=== PATIENT | female | born 2000 | race Caucasian/White ===

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

== ENCOUNTER 2020-07-24 19:01 | Emergency (ER) | payer BC ==
[2020-07-24] MEDS ORDERED: Sodium Chloride 0.9% 1,000 ML IV ONE (19:28)
[2020-07-24] MEDS ORDERED: Metoclopramide 10 MG/2 ML SDV IVPUSH ONE (19:28)
[2020-07-24] MEDS ORDERED: Sodium Chloride 0.9% 10 ML Syringe FLUSH PRN (19:28)
[2020-07-24] MEDS ORDERED: Ketorolac 30 MG/ML SDV IVPUSH ONE (19:28)
[2020-07-24] MEDS ORDERED: diphenhydrAMINE 50 MG/ML SDV IVPUSH ONE (19:28)
--- NOTE | 2020-07-24 19:35 | EDM.PDOC ---
ED HPI GENERAL MEDICAL PROBLEM - General Chief Complaint: Headache Stated Complaint: headache vomiting Time Seen by Provider: 07/24/20 19:16 Source of Information: Reports: Patient, RN Notes Reviewed History Limitations: Reports: No Limitations - History of Present Illness INITIAL COMMENTS - FREE TEXT/NARRATIVE: The patient is a 19-year-old female who presents to the ED for evaluation of her headache. For the last day, she has had a pretty severe headache. She does note that this is mostly on the left side of her head. She notes is been worse for the last couple hours. She is not taking any medications [id number] for this. She was evaluated in the walk-in clinic last week, and given Phenergan, Zofran, and cyclobenzaprine for further headache management, but she has not taken any of these today. She states she was taking Advil or Aleve for her headache, but notes that not even these seem to be helping much. She has not taken any of these today. She states that she just took a nap to see if it would go away. Other than the headache, she is not having any sick-like symptoms, fever/chills, cough/shortness of breath, states that she was nauseous on the way over here but did not vomit or have any diarrhea. Patient notes that she was seen many years ago for her headaches, and had an MRI, but cannot recall if anything was wrong with that. She also notes a history of PCOS, her last menstrual period was last week, she is on control, so does not think she be at today's visit. 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 Musculoskeletal History: Reports: Fracture Other Musculoskeletal History: elbow Neurological History: Reports: Seizure, Other (See Below) Other Neuro History: seizures as a baby; headaches Oncologic (Cancer) History: Reports: Other (See Below) Other Oncologic History: skin cancer - Past Surgical History HEENT Surgical History: Reports: Oral Surgery Dermatological Surgical History: Reports: Other (See Below) (for skin cancer) Social & Family History - Tobacco Use Smoking Status *Q: Never Smoker Second Hand Smoke Exposure: No - Caffeine Use Caffeine Use: Reports: Coffee, Soda - Recreational Drug Use Recreational Drug Use: No - Living Situation & Occupation Living situation: Reports: Single, with Family Occupation: Student ([employer]) ED ROS GENERAL - Review of Systems Review Of Systems: Comprehensive ROS is negative, except as noted in HPI. - Physical Exam Exam: See Below Exam Limited By: No Limitations General Appearance: Alert, WD/WN, No Apparent Distress Eye Exam: Bilateral Eye: EOMI, Normal Inspection, PERRL Head Exam: Atraumatic, Normocephalic Neck: Normal Inspection, Supple, Non-Tender, Full Range of Motion Respiratory/Chest: No Respiratory Distress, Lungs Clear, Normal Breath Sounds, No Accessory Muscle Use, Chest Non-Tender Cardiovascular: Normal Peripheral Pulses, Regular Rate, Rhythm, No Murmur GI/Abdominal: Normal Bowel Sounds, Soft, Non-Tender, No Distention, No Mass Neuro Exam (Abbreviated): Alert, Oriented, Normal Cognition, No Motor/Sensory Deficits Extremities: Normal Inspection, Normal Capillary Refill Psychiatric: Normal Affect, Normal Mood Skin Exam: Warm, Dry, Intact, Normal Color, No Rash Course - Vital Signs Last Recorded V/S: Last Vital Signs Temp 97.3 F 07/24/20 19:16 Pulse 87 07/24/20 19:16 Resp 18 07/24/20 19:16 BP 137/96 H 07/24/20 19:16 Pulse Ox 98 07/24/20 19:16 - Orders/Labs/Meds Orders: Active Orders 24 hr Category Date Time Status Peripheral IV Care [RC] . DIRECTED Care 07/24/20 19:29 Ordered Sodium Chloride 0.9% [Normal Saline] 1,000 ml Med 07/24/20 19:28 Active IV ASDIRECTED Sodium Chloride 0.9% [Saline Flush] Med 07/24/20 19:28 Active 10 ml FLUSH ASDIRECTED PRN Peripheral IV Insertion Adult [OM.PC] Routine Oth 07/24/20 19:29 Ordered Medication Orders Sodium Chloride (Normal Saline) 1,000 mls @ 999 mls/hr IV ASDIRECTED ONE Stop: 07/24/20 20:28 Last Admin: 07/24/20 19:42 Dose: 999 mls/hr Documented by: FILI Sodium Chloride (Saline Flush) 10 ml FLUSH ASDIRECTED PRN PRN Reason: Keep Vein Open Last Admin: 07/24/20 19:45 Dose: 10 ml Documented by: FILI Labs: Laboratory Tests 07/24/20 07/24/20 Range/Units 19:44 19:44 WBC 6.67 (3.98-10.04) K/mm3 RBC 5.14 (3.98-5.22) M/mm3 Hgb 15.2 (11.2-15.7) gm/dl Hct 44.0 (34.1-44.9) % MCV 85.6 D (79.4-94.8) fl MCH 29.6 (25.6-32.2) pg MCHC 34.5 (32.2-35.5) g/dl RDW Std Deviation 41.3 (36.4-46.3) fL Plt Count 355 (182-369) K/mm3 MPV 8.6 L (9.4-12.3) fl Neut % (Auto) 50.0 (34.0-71.1) % Lymph % (Auto) 39.3 (19.3-51.7) % Green % (Auto) 9.0 (4.7-12.5) % Eos % (Auto) 1.2 (0.7-5.8) Baso % (Auto) 0.4 (0.1-1.2) % Neut # (Auto) 3.33 (1.56-6.13) K/mm3 Lymph # (Auto) 2.62 (1.18-3.74) K/mm3 Green # (Auto) 0.60 H (0.24-0.36) K/mm3 Eos # (Auto) 0.08 (0.04-0.36) K/mm3 Baso # (Auto) 0.03 (0.01-0.08) K/mm3 Sodium 139 (136-145) mEq/L Potassium 3.7 (3.5-5.1) mEq/L Chloride 103 (98-107) mEq/L Carbon Dioxide 24 (21-32) mEq/L Anion Gap 15.7 H (5-15) BUN 8 (7-18) mg/dL Creatinine 0.8 (0.55-1.02) mg/dL Est Cr Clr Drug Dosing 109.99 mL/min Estimated GFR (MDRD) > 60 (>60) mL/min BUN/Creatinine Ratio 10.0 L (14-18) Glucose 97 (74-106) mg/dL Calcium 9.3 (8.5-10.1) mg/dL Magnesium 1.9 (1.8-2.4) mg/dl Total Bilirubin 0.2 (0.2-1.0) mg/dL AST 17 (15-37) U/L ALT 33 (14-59) U/L Alkaline Phosphatase 62 (46-116) U/L Total Protein 8.4 H (6.4-8.2) g/dl Albumin 3.9 (3.4-5.0) g/dl Globulin 4.5 gm/dL Albumin/Globulin Ratio 0.9 L (1-2) Meds: Medications Generic Name Dose Route Start Last Admin Trade Name Freq PRN Reason Stop Dose Admin Sodium Chloride 1,000 mls @ 999 mls/hr 07/24/20 19:28 07/24/20 19:42 Normal Saline IV 07/24/20 20:28 999 mls/hr ASDIRECTED ONE Administration Sodium Chloride 10 ml 07/24/20 19:28 07/24/20 19:45 Saline Flush FLUSH 10 ml ASDIRECTED PRN Administration Keep Vein Open Discontinued Medications Generic Name Dose Route Start Last Admin Trade Name Freq PRN Reason Stop Dose Admin Diphenhydramine HCl 25 mg 07/24/20 19:28 07/24/20 19:42 Benadryl IVPUSH 07/24/20 19:29 25 mg ONETIME ONE Administration Ketorolac Tromethamine 30 mg 07/24/20 19:28 07/24/20 19:42 Toradol IVPUSH 07/24/20 19:29 30 mg ONETIME ONE Administration Metoclopramide HCl 10 mg 07/24/20 19:28 07/24/20 19:41 Reglan IVPUSH 07/24/20 19:29 10 mg ONETIME ONE Administration - Re-Assessments/Exams Free Text/Narrative Re-Assessment/Exam: 07/24/20 19:34 Patient presents to the ED for evaluation of her headache. Have ordered IV fluids, Toradol, Benadryl, Reglan, basic labs include CBC, CMP and magnesium level to see if there is any electrolyte abnormalities at this time. I did direct the patient she would need to follow-up with a primary care physician for further work-up and referral if today's lab evaluation was unremarkable. Patient verbalized understanding. 07/24/20 20:22 Labs are unremarkable. Patient was reassessed at bedside, states that her headache is much better and would like to go home at this time. She is about three quarters [address] way done with IV fluids. We will discharge her home with general recommendations. Departure - Departure Time of Disposition: 20:22 Disposition: Home, Self-Care 01 Condition: Good Clinical Impression: Headache Qualifiers: Headache type: unspecified Headache chronicity pattern: acute headache Intractability: not intractable Qualified Code(s): R51 - Headache - Discharge Information *PRESCRIPTION DRUG MONITORING PROGRAM REVIEWED*: No *COPY OF PRESCRIPTION DRUG MONITORING REPORT IN PATIENT KIP: No Instructions: Tension Headache, Adult, [id number] Referrals: Cheryl Sanchez NP [Primary Care Provider] - Forms: ED Department Discharge Additional Instructions: You were evaluated in the ED for your headache. You were given a combination of medications and IV fluid for management. This did seem to provide you pretty good relief of your symptoms. Recommend that you go home and rest in a quiet, darkened room. Try also to keep well hydrated. Please call our clinic at [phone], and establish care with a family practice provider of your choice. This would be for possible referral to neurology for further work-up of your headaches if they seem to linger. You were already given a prescription for Zofran, Phenergan, and cyclobenzaprine from a different clinic. If you are having another headache at home, you could try 600 mg ibuprofen, 1 tablet Phenergan, and 1 wvva-jyy-jefloyg tablet of Benadryl to see if this helps relieve your headache. Do not exceed 3200 mg ibuprofen in a 24-hour time span. Please return to the ED if your symptoms should change or worsen. Sepsis Event Note (ED) - Evaluation Sepsis Screening Result: No Definite Risk - Focused Exam Vital Signs: Vital Signs Temp Pulse Resp BP Pulse Ox 07/24/20 19:16 97.3 F 87 18 137/96 H 98 - My Orders Last 24 Hours: My Active Orders 07/24/20 19:28 Sodium Chloride 0.9% [Normal Saline] 1,000 ml IV ASDIRECTED Sodium Chloride 0.9% [Saline Flush] 10 ml FLUSH ASDIRECTED PRN 07/24/20 19:29 Peripheral IV Care [RC] . DIRECTED Peripheral IV Insertion Adult [OM.PC] Routine - Assessment/Plan Last 24 Hours: My Active Orders 07/24/20 19:28 Sodium Chloride 0.9% [Normal Saline] 1,000 ml IV ASDIRECTED Sodium Chloride 0.9% [Saline Flush] 10 ml FLUSH ASDIRECTED PRN 07/24/20 19:29 Peripheral IV Care [RC] . DIRECTED Peripheral IV Insertion Adult [OM.PC] Routine
== END 2020-07-24 20:31 | disposition home or self-care (01) ==
LOC: JD.ED 19:01
DX: R51 Headache (principal); R11.0 Nausea; Z88.8 Allergy status to other drugs, medicaments and biological substances
CPT/HCPCS: 36415; 80053; 83735; 85025; 96361; 96374; 96375; 99284; J1200; J1885; J2765; J7030; 99283

== ENCOUNTER 2021-01-11 02:56 | Emergency (ER) | payer BC ==
[2021-01-11] MEDS ORDERED: Benztropine 1 MG Tab PO STA (03:34)
[2021-01-11] MEDS ORDERED: Haloperidol Lactate 5 MG/ML SDV IM ONE (03:34)
--- NOTE | 2021-01-11 03:39 | EDM.PDOC ---
ED HPI GENERAL MEDICAL PROBLEM - General Chief Complaint: Headache Stated Complaint: MIGRAINE Time Seen by Provider: 01/11/21 03:14 Source of Information: Reports: Patient History Limitations: Reports: No Limitations - History of Present Illness INITIAL COMMENTS - FREE TEXT/NARRATIVE: Ms. Nugent is a very pleasant 20-year-old woman who now presents the ED complaining of a migraine headache that began this past 01/07/2021. She describes a throbbing and stabbing pain felt behind her left arm and left forehead. Her pain is made worse if she moves. She has both photophobia and phonophobia, although no nausea or vomiting, visual symptoms, such as blurry vision, wavy lines, or flashing lights, or neurologic symptoms, such as tingling, numbness, or weakness. She states that she feels hot, although has not had a fever. The patient states that she took 1 tablet of sumatriptan 50 mg around 1:00 this morning, which did not improve her symptoms. She states that she was prescribed sumatriptan a few months ago, and that it has worked in the past to treat her headaches. Medical records indicate that she underwent an MRI of her brain on 08/10/2020, which was normal. Here in the ED, the patient's initial BP is found to be mildly elevated at 141/102, otherwise, she is hemodynamically stable, afebrile, saturating 98% on room air. Prior to Thursday, the patient denies having a recent fever, chills, sore throat, ear pain, nasal or sinus congestion, cough, dyspnea, chest pain, palpitations, nausea, vomiting, constipation, diarrhea, abdominal pain, urinary symptoms, recent weight gain or weight loss, recent bloody bowel movements or black bowel movements, recent joint aches, headaches, or rashes. The patient's PCP is SALOMON Seals. Her woman's health provider is Cheryl Sanchez NP. She states that she already received an influenza vaccine this season. 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 Musculoskeletal History: Reports: Fracture (right elbow) Neurological History: Reports: Migraines Endocrine/Metabolic History: Reports: Obesity/BMI 30+ Oncologic (Cancer) History: Reports: Other (See Below) (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, excised) - Past Surgical History HEENT Surgical History: Reports: Oral Surgery (dental extractions) GI Surgical History: Reports: Cholecystectomy (09/03/2019) Oncologic Surgical History: Reports: Other (See Below) (Excision of Spitz nevus melanotic lesion from right scapular area) Social & Family History - Tobacco Use Tobacco Use Status *Q: Never Tobacco User - Caffeine Use Caffeine Use: Reports: Coffee, Energy Drinks, Soda, Tea - Alcohol Use Alcohol Use History: Yes Alcohol Use Frequency: Socially - Recreational Drug Use Recreational Drug Use: No - Living Situation & Occupation Living situation: Reports: Single, with Family Occupation: Student ([employer]) ED ROS GENERAL - Review of Systems Review Of Systems: Comprehensive ROS is negative, except as noted in HPI. - Physical Exam Exam: See Below Exam Limited By: No Limitations General Appearance: Alert, WD/WN, No Apparent Distress Eye Exam: Bilateral Eye: EOMI, Normal Inspection, PERRL Ears: Normal External Exam, Normal Canal, Hearing Grossly Normal, Normal TMs Nose: Normal Inspection, Normal Mucosa, No Blood Throat/Mouth: Normal Inspection, Normal Lips, Normal Teeth, Normal Gums, Normal Oropharynx, Normal Voice, No Airway Compromise Head Exam: Atraumatic, Normocephalic Neck: Normal Inspection, Supple, Non-Tender, Full Range of Motion. No: Ly mphadenopathy (L), Lymphadenopathy (R) Respiratory/Chest: No Respiratory Distress, Lungs Clear, Normal Breath Sounds, No Accessory Muscle Use Cardiovascular: Normal Peripheral Pulses, Regular Rate, Rhythm, No Edema, No Gallop, No JVD, No Murmur, No Rub GI/Abdominal: Normal Bowel Sounds, Soft, Non-Tender, No Organomegaly, No Distention, No Abnormal Bruit, No Mass Neuro Exam (Abbreviated): Alert, Oriented, CN II-XII Intact, Normal Cognition, No Motor/Sensory Deficits Back Exam: Normal Inspection, Full Range of Motion, NT Extremities: Normal Inspection, Normal Range of Motion, No Pedal Edema, Normal Capillary Refill Psychiatric: Normal Affect Skin Exam: Warm, Dry, Intact, Normal Color, No Rash Course - Vital Signs Last Recorded V/S: Last Vital Signs Temp 36.1 C 01/11/21 03:07 Pulse 96 01/11/21 03:07 Resp 18 01/11/21 03:07 BP 141/102 H 01/11/21 03:07 Pulse Ox 98 01/11/21 03:07 - Re-Assessments/Exams Free Text/Narrative Re-Assessment/Exam: 01/11/21 03:35 As above, the patient has had a throbbing, stabbing headache felt behind her left eye and left forehead since 01/07/2021, associated with photophobia and phonophobia, although no nausea, visual changes, or neurologic symptoms. She took a single dose of sumatriptan 50 mg p.o. around 1:00 this morning, without relief of her symptoms. I am recommending treatment with IM Haldol and oral Cogentin, to which the patient agreed. Because she has not been vomiting, we do not need to give her IV fluid or an antiemetic. Because she had a normal MRI of the brain on 08/10/2020, and her neurologic exam today is completely normal, a repeat imaging study of her head is not indicated. 01/11/21 04:16 The patient reports that she feels significant, although not complete, improvement of her headache. I will discharge her home with a prescription for rizatriptan (Maxalt) that she can try the next time she has a migraine. Departure - Departure Time of Disposition: 04:17 Disposition: Home, Self-Care 01 Condition: Good Clinical Impression: Migraine headache - Discharge Information *PRESCRIPTION DRUG MONITORING PROGRAM REVIEWED*: Not Applicable *COPY OF PRESCRIPTION DRUG MONITORING REPORT IN PATIENT KIP: Not Applicable Referrals: Cheryl Sanchez NP [Primary Care Provider] - Elaine Zepeda PA-C [Physician Footwear Production Machine Operator] - Forms: ED Department Discharge Additional Instructions: You were seen in the emergency room for a headache since 01/07/2021. You had improvement in your symptoms following an injection of haloperidol. We recommend that you stay adequately hydrated and get plenty of rest in a dark, quiet place. A prescription for the anti-migraine medicine rizatriptan (Maxalt) has been sent to [facility], located in the [facility] across the [address] from the hospital. Dissolve 1 tablet of rizatriptan in your mouth, like a lozenge, at the earliest sign of a migraine. You may repeat after 2 hours, if necessary, to a maximum of 3 tablets within a 24-hour period. If rizatriptan works to treat your next migraine, talk to your PCP, SALOMON Seals, about getting an additional prescription. If any other problems, please do not hesitate to return to the ER. Sepsis Event Note (ED) - Evaluation Sepsis Screening Result: No Definite Risk - Focused Exam Vital Signs: Vital Signs Temp Pulse Resp BP Pulse Ox 01/11/21 03:07 36.1 C 96 18 141/102 H 98
== END 2021-01-11 04:27 | disposition home or self-care (01) ==
LOC: JD.ED 02:56
DX: G43.909 Migraine, unspecified, not intractable, without status migrainosus (principal); E66.9 Obesity, unspecified; Z79.899 Other long term (current) drug therapy; Z88.8 Allergy status to other drugs, medicaments and biological substances
CPT/HCPCS: 96372; 99283; A9270; J1630

== ENCOUNTER 2021-04-27 02:32 | Emergency (ER) | payer BC ==
--- NOTE | 2021-04-27 02:47 | EDM.PDOC ---
ED HPI GENERAL MEDICAL PROBLEM - General Chief Complaint: Lower Extremity Injury/Pain Stated Complaint: INJURED RIGHT ANKLE Time Seen by Provider: 04/27/21 02:41 Source of Information: Reports: Patient History Limitations: Reports: No Limitations - History of Present Illness INITIAL COMMENTS - FREE TEXT/NARRATIVE: The patient presents with a right ankle injury. She was walking outside this morning and stepped in a hole and twisted her right ankle. She heard some popping. She has no other injuries. She could not put any weight on it. Onset: Sudden Duration: Minutes: Location: Reports: Lower Extremity, Right (ankle) Quality: Reports: Sharp Severity: Severe Improves with: Reports: Immobilization Worsens with: Reports: Movement Context: Reports: Trauma (stepped in hole and twisted it) Associated Symptoms: Reports: No Other Symptoms Right Ankle Pain Score (Numeric/FACES): 9 - Related Data Allergies Allergy/AdvReac Type Severity Reaction Status Date / Time guaifenesin [From Mucinex] Allergy Hives Verified 04/27/21 02:44 Home Meds: Home Meds SUMAtriptan succinate [Imitrex] 50 mg PO ASDIRECTED PRN 08/09/20 [History] norgestrel-ethinyl estradioL [Cryselle-28 Tablet] 1 tab PO DAILY 04/27/21 [History] 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 Musculoskeletal History: Reports: Fracture (right elbow) Other Musculoskeletal History: elbow Neurological History: Reports: Migraines Other Neuro History: seizures as a baby; headaches Endocrine/Metabolic History: Reports: Obesity/BMI 30+ Oncologic (Cancer) History: Reports: Other (See Below) (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, excised) Other Oncologic History: skin cancer Dermatologic History: Reports: Other (See Below) - Past Surgical History GI Surgical History: Reports: Cholecystectomy (09/03/2019) Social & Family History - Caffeine Use Caffeine Use: Reports: Coffee, Energy Drinks, Soda, Tea - Living Situation & Occupation Living situation: Reports: Single, with Family Occupation: Student ([employer]) Review of Systems - Review of Systems Review Of Systems: See Below Constitutional: Reports: No Symptoms Eyes: Reports: No Symptoms Ears: Reports: No Symptoms Nose: Reports: No Symptoms Mouth/Throat: Reports: No Symptoms Respiratory: Reports: No Symptoms Cardiovascular: Reports: No Symptoms GI/Abdominal: Reports: No Symptoms Genitourinary: Reports: No Symptoms Musculoskeletal: Reports: Other (Right ankle pain and swelling) ED EXAM, GENERAL - Physical Exam Exam: See Below Exam Limited By: No Limitations General Appearance: Alert, No Apparent Distress Ears: Normal External Exam Nose: Normal Inspection Head: Atraumatic, Normocephalic Neck: Normal Inspection Respiratory/Chest: No Respiratory Distress Extremities: Other (Pain upon palpation and edema to the right lateral ankle. Good sensation and pulses distaly.) Course - Vital Signs Last Recorded V/S: Last Vital Signs Temp 97.2 F 04/27/21 02:41 Pulse 100 04/27/21 02:41 Resp 20 04/27/21 02:41 BP 139/91 H 04/27/21 02:41 Pulse Ox 98 04/27/21 02:41 - Orders/Labs/Meds Orders: Active Orders 24 hr Category Date Time Status Ankle Min 3V Rt [CR] Stat Exams 04/27/21 02:43 Taken - Re-Assessments/Exams Free Text/Narrative Re-Assessment/Exam: 04/27/21 02:47 I have ordered an x-ray of her ankle. 04/27/21 02:55 The x-ray looks good. I will give he an ankle splint. She already has crutches. Departure - Departure Time of Disposition: 03:00 Disposition: Home, Self-Care 01 Condition: Good Clinical Impression: Right ankle sprain Qualifiers: Encounter type: initial encounter Involved ligament of ankle: unspecified ligament Qualified Code(s): S93.401A - Sprain of unspecified ligament of right ankle, initial encounter - Discharge Information *PRESCRIPTION DRUG MONITORING PROGRAM REVIEWED*: Not Applicable *COPY OF PRESCRIPTION DRUG MONITORING REPORT IN PATIENT KIP: Not Applicable Referrals: Elaine Zepeda PA-C [Primary Care Provider] - 1 Week Forms: ED Department Discharge Additional Instructions: Ice your ankle for 15 minutes 3 times per day for 2 days. Try elevate your ankle above your heart as much as you can for 2 days. Take tylenol or motrin as needed for pain. Wear the splint to stabilize your ankle and avoid further injury. You can also use the crutches for a few days. Follow up with Elaine Zepeda in 1 week. Please return if you are worse. Sepsis Event Note (ED) - Evaluation Sepsis Screening Result: No Definite Risk - Focused Exam Vital Signs: Vital Signs Temp Pulse Resp BP Pulse Ox 04/27/21 02:41 97.2 F 100 20 139/91 H 98 - My Orders Last 24 Hours: My Active Orders 04/27/21 02:43 Ankle Min 3V Rt [CR] Stat - Assessment/Plan Last 24 Hours: My Active Orders 04/27/21 02:43 Ankle Min 3V Rt [CR] Stat
--- NOTE | 2021-04-27 08:24 | CR ---
Right ankle: 3 views of the right ankle were obtained. Comparison: No prior ankle study is available. Small bone island is noted within the distal tibial diaphysis. Ankle mortise is symmetric. No acute fracture, dislocation or other bony abnormality is appreciated. Impression: 1. Incidental bone island. 2. Nothing acute is appreciated on right ankle exam. Diagnostic code #2
== END 2021-04-27 03:15 | disposition home or self-care (01) ==
LOC: JD.ED 02:32
DX: S93.401A Sprain of unspecified ligament of right ankle, initial encounter (principal); E66.9 Obesity, unspecified; Z68.34 Body mass index [BMI] 34.0-34.9, adult; Z88.8 Allergy status to other drugs, medicaments and biological substances; X50.1XXA Overexertion from prolonged static or awkward postures, initial encounter; Y93.01 Activity, walking, marching and hiking; Y92.59 Other trade areas as the place of occurrence of the external cause
CPT/HCPCS: 73610-26-RT; 73610-RT; 99283-25

== ENCOUNTER 2022-04-24 11:55 | Emergency (ER) | payer BC ==
[2022-04-24] MEDS ORDERED: Dicyclomine 10 MG Cap PO ONE (13:14)
[2022-04-24] MEDS ORDERED: Ketorolac 30 MG/ML SDV IVPUSH ONE (13:14)
[2022-04-24] MEDS ORDERED: Sodium Chloride 0.9% 10 ML Syringe FLUSH PRN (13:14)
[2022-04-24] MEDS ORDERED: Ondansetron 4 MG/2 ML SDV IVPUSH ONE (13:14)
[2022-04-24] MEDS ORDERED: Sodium Chloride 0.9% 1,000 ML IV ONE (13:23)
== END 2022-04-24 15:20 | disposition home or self-care (01) ==
LOC: JD.ED 11:55
DX: R10.31 Right lower quadrant pain (principal); E66.9 Obesity, unspecified; Z68.38 Body mass index [BMI] 38.0-38.9, adult; Z88.8 Allergy status to other drugs, medicaments and biological substances; Z79.899 Other long term (current) drug therapy
CPT/HCPCS: 36415; 80053; 81001; 85025; 86140; 96361; 96374; 96375; 99284; A9270; J1885; J2405; J3490; J7030; 99283

== ENCOUNTER 2024-02-16 18:04 | Emergency (ER) | payer BC ==
[2024-02-16] MEDS: Ondansetron 4 MG Tab.DIS PO ONE (19:41)
[2024-02-16 19:47] LABS: BASOPHILS PERCENT AUTO 0.5 % (0.0-1.0); EOSINOPHILS ABSOLUTE AUTO 0.1 K/mm3 (0.0-0.4); EOSINOPHILS PERCENT AUTO 0.8 % (0.0-6.0); HEMATOCRIT 44.3 % (37.0-47.0); HEMOGLOBIN 15.3 gm/dl (12.0-16.0); IMMATURE GRAN ABSOLUTE AUTO 0.02 K/mm3 (0.00-0.05); IMMATURE GRAN PERCENT AUTO 0.2 % (0.0-0.4); LYMPHOCYTES ABSOLUTE AUTO 2.8 K/mm3 (1.0-4.8); LYMPHOCYTES PERCENT AUTO 32.4 % (24.0-44.0); MEAN CORPUSCULAR HEMOGLOBIN 29.1 pg (28.0-32.0); MEAN CORPUSCULAR HGB CONC 34.5 g/dl (32.0-36.0); MEAN CORPUSCULAR VOLUME 84.4 fl (83.0-99.0); MEAN PLATELET VOLUME 8.7 fl (9.4-12.3); MONOCYTES ABSOLUTE AUTO 0.6 K/mm3 (0.0-0.8); MONOCYTES PERCENT AUTO 7.3 % (0.0-8.0); NEUTROPHILS PERCENT AUTO 58.8 % (41.0-71.0); PLATELET COUNT,PLT 320 K/mm3 (150-400); RED BLOOD CELL COUNT 5.25 M/mm3 (4.10-5.30); WHITE BLOOD CELL COUNT,WBC 8.55 K/mm3 (3.9-11.3)
[2024-02-16] MEDS: Alum Hydrox/Mag Hydrox/Simeth 30 ML, Lidocaine 2% 15 ML PO ONE (20:07)
[2024-02-16 20:18] LABS: APPEARANCE,URINE CLEAR (Clear); BILIRUBIN,URINE NEGATIVE (Negative); COLOR,URINE YELLOW (Yellow); GLUCOSE,URINE NEGATIVE (Negative); KETONES,URINE 2+ (Negative); LEUKOCYTE ESTERASE,URINE NEGATIVE (Negative); NITRITE,URINE NEGATIVE (Negative); OCCULT BLOOD,URINE NEGATIVE (Negative); PROTEIN,URINE NEGATIVE (Negative); UROBILINOGEN,URINE 0.2 (0.2-1.0)
[2024-02-16 20:31] LABS: ALANINE AMINOTRANSFERASE,ALT 25 U/L (14-59); ALBUMIN 4.1 g/dl (3.4-5.0); ALKALINE PHOSPHATASE 66 U/L (46-116); ANION GAP 15.8 (5-15); ASPARTATE AMNIOTRANSFERASE,AST 15 U/L (15-37); BILIRUBIN TOTAL 0.4 mg/dL (0.2-1.0); BLOOD UREA NITROGEN,BUN 15 mg/dL (7-18); BUN/CREATININE RATIO 18.8 (14-18); CALCIUM 9.4 mg/dL (8.5-10.1); CARBON DIOXIDE,CO2 25 mEq/L (21-32); CHLORIDE,CL 101 mEq/L (98-107); CREATININE 0.8 mg/dL (0.55-1.02); EST CRCL DRUG DOSING (CG) 106.36 mL/min; ESTIMATED GFR 106 mL/min (>60); GLUCOSE RANDOM 76 mg/dL (70-99); LIPASE 53 U/L (16-77); POTASSIUM,K 3.8 mEq/L (3.5-5.1); PROTEIN TOTAL,TP 8.3 g/dl (6.4-8.2); SODIUM,NA 138 mEq/L (136-145)
[2024-02-16 20:34] LABS: TROPONIN I HIGH SENSITIVITY < 4 pg/mL (<=51)
== END 2024-02-16 21:10 | disposition home or self-care (01) ==
LOC: JD.ED 18:04
DX: R10.11 Right upper quadrant pain (principal); Z88.8 Allergy status to other drugs, medicaments and biological substances; Z79.899 Other long term (current) drug therapy; Z86.16 Personal history of COVID-19; E66.9 Obesity, unspecified; Z90.49 Acquired absence of other specified parts of digestive tract; Z68.34 Body mass index [BMI] 34.0-34.9, adult
CPT/HCPCS: 36415; 80053; 81003; 83690; 84484; 84703; 85025; 99284; A9270